=== PATIENT | female | born 1965 | race Caucasian/White ===

== ENCOUNTER 2016-06-25 10:45 | Day surgery (SDC) | payer OTHER ==
[~2016-06-25] VITALS: Ht 165.1 cm; Wt 86.2 kg
[~2016-06-25 10:45] MED LIST: 0.9% Sodium Chloride 1,000 ML IV SCH; ALBU18HF INH; FLUT15.88 NS; FLUT1DIS5 IH; GABA-500 PO; LEVO200T6 PO; LEVO25TA5 PO; OMEP40CA36 PO; SERT25TA6 PO; Sodium Chloride LOK Flush 10 mL Syringe IV PRN; TRIA1CAP5 PO; fentaNYL-PF 50 mCg/mL 2 mL Inj IVPUSH PRN
[2016-06-25 11:11] VITALS: BP 130/81; PULSE 66; RESP 14; O2SAT 94
[2016-06-25 12:39] VITALS: BP 120/84; PULSE 77; RESP 16; O2SAT 92
[2016-06-25 12:49] VITALS: BP 124/78; PULSE 75; RESP 16; O2SAT 92
--- NOTE | 2016-06-26 01:05 | ENDO ---
[address] [address] ENDOSCOPY PROCEDURE PATIENT: WILL BARBA : 1965 MR#: [id number] ADMIT: 06/25/2016 JOB ID: [id number] DATE OF PROCEDURE: 06/25/2016 PRIMARY PROVIDER: ANABELLA Yang. PROCEDURE: Colonoscopy. INDICATIONS: A 50-year-old female who reports for colon cancer screening. EQUIPMENT: [id number]. SEDATION: 1. Versed 6 mg. 2. Fentanyl 125 mcg. COMPLICATIONS: None identified. BOWEL PREPARATION: Fair, adequate exam. PROCEDURE INFORMATION: After the risks and benefits were explained, written and verbal informed consent was obtained. The patient was put into the left lateral decubitus position in the endoscopy suite. Sedation was achieved. A rectal examination accomplished. Mild to moderate internal hemorrhoids were noted. The scope was introduced into the rectum and advanced under direct visualization to the cecum, as identified by the appendiceal orifice and ileocecal valve. The scope was slowly withdrawn to carefully examine the mucosa for any defects or lesions. Retroflexed views were accomplished in the rectum. The colon was decompressed. The scope was removed from the patient who tolerated the procedure well. FINDINGS: Fairly extensive diverticulosis was seen in the left colon. No significant polyps, mass lesions, inflammatory features identified throughout. Retroflexed views were unremarkable. ENDOSCOPIC DIAGNOSES: 1. Diverticulosis. 2. Hemorrhoids. RECOMMENDATIONS: Repeat colonoscopy in 10 years' time, sooner should symptoms warrant.
== END 2016-06-25 23:59 | disposition home or self-care (01) ==
LOC: END 10:45
PROVIDERS: ATTEND Internal Medicine Gastroenterology
DX: Z12.11 Encounter for screening for malignant neoplasm of colon (principal); K57.30 Diverticulosis of large intestine without perforation or abscess without bleeding; K64.8 Other hemorrhoids; J45.909 Unspecified asthma, uncomplicated; K21.9 Gastro-esophageal reflux disease without esophagitis; F41.8 Other specified anxiety disorders; E78.5 Hyperlipidemia, unspecified; E03.8 Other specified hypothyroidism; Z79.51 Long term (current) use of inhaled steroids
CPT/HCPCS: 99153; G0121; G0500; J2250; J3010; J7030